=== PATIENT | male | born 1970 | race Caucasian/White ===

== ENCOUNTER 2017-05-07 18:01 | Emergency (ER) | payer OTHER ==
[2017-05-07] MEDS ORDERED: HYDROmorphone 1 MG/ML 1 ML SYRINGE IVP STA ×3 (18:04→22:39)
[2017-05-07] MEDS ORDERED: SODIUM CHLORIDE 0.9% 1,000 ML IV STA (18:04)
[2017-05-07] MEDS ORDERED: RX INFO: IV CONTRAST WAS GIVEN 1 EACH MISC MISCELLANE PRN (18:05)
[2017-05-07 18:18] LABS: Basophils # (A) 0.1 k/uL (0-0.2); Basophils % (A) 1 %; Eosinophils # (A) 0.3 k/uL (0-0.7); Eosinophils % (A) 3 %; HCT 45.2 % (39.0-53.0); HGB 14.9 gm/dL (13.0-17.5); Lymphocytes % (A) 36 %; MCH 29.4 pg (25.0-35.0); Mean Platelet Volume 6.9; Monocytes # (A) 0.4 k/uL (0-1.0); Monocytes % (A) 5 %; Neutrophils # (A) 4.4 k/uL (1.3-7.7); Neutrophils % (A) 53 %; Platelet Count 293 k/uL (150-450); RBC 5.07 m/uL (4.30-5.90); RDW 14.2 % (11.5-15.5); WBC 8.2 k/uL (3.8-10.6)
[2017-05-07 18:27] LABS: ALT 30 U/L (21-72); AST 19 U/L (17-59); Albumin 3.7 g/dL (3.5-5.0); Alcohol <10 mg/dL; Alkaline Phosphatase 68 U/L (38-126); Amylase 105 U/L (30-110); Anion Gap 11 mmol/L; Blood Urea Nitrogen 10 mg/dL (9-20); Calcium 8.4 mg/dL (8.4-10.2); Carbon Dioxide 23 mmol/L (22-30); Chloride 104 mmol/L (98-107); Glucose 180 mg/dL (74-99); Lipase 145 U/L (23-300); Potassium 4.2 mmol/L (3.5-5.1); Sodium 138 mmol/L (137-145); Total Bilirubin 0.4 mg/dL (0.2-1.3); Total Protein 6.4 g/dL (6.3-8.2)
[2017-05-07 18:37] LABS: Creatine Kinase 93 U/L (55-170)
[2017-05-07 18:42] LABS: INR 1.2 (<1.2); Partial Thromboplastin Time 21.6 sec (22.0-30.0); Prothrombin Time 11.1 sec (9.0-12.0)
--- NOTE | 2017-05-07 18:44 | XR ---
EXAMINATION TYPE: XR chest 1V portable DATE OF EXAM: 05/07/2017 COMPARISON: NONE HISTORY: Trauma. Chest pain. TECHNIQUE: Single frontal view of the chest is obtained. FINDINGS: There is no focal air space opacity, pleural effusion, or pneumothorax seen. The cardiac silhouette size is within normal limits. The osseous structures are intact. IMPRESSION: No acute process.
--- NOTE | 2017-05-07 18:48 | XR ---
EXAMINATION TYPE: XR pelvis AP view DATE OF EXAM: 05/07/2017 CLINICAL HISTORY: Trauma with chronic injury to the left knee TECHNIQUE: A single AP view of the pelvis is obtained. COMPARISON: None. FINDINGS: There is no acute fracture/dislocation evident in the pelvis. The hip and sacroiliac join ts appear symmetric and unremarkable. The overlying soft tissue appears unremarkable. IMPRESSION: There is no acute fracture or dislocation in the pelvis.
[2017-05-07 18:50] LABS: Creatine Kinase MB 0.6 ng/mL (0.0-2.4); Troponin I <0.012 ng/mL (0.000-0.034)
--- NOTE | 2017-05-07 18:58 | ED ---
Trauma HPI - General Chief Complaint: Trauma Stated Complaint: Leg crushed-[facility] Time Seen by Provider: 05/07/17 18:04 Source: patient Mode of arrival: EMS Limitations: no limitations - History of Present Illness Initial Comments: This is a 47-year-old male who presents emergency department for left leg pain. The patient was at work when he had his left leg pinned between 2, weight of 2 high low machines. The patient states that this lasted only for a matter of seconds however he had severe pain pain afterwards. The EMS providers were unable to palpate a pulse in route and thus able to trauma was called. The patient denies any other injuries. No head injury. No chest injury. He admits to left knee pain. Denies any numbness, tingling, or weakness in his extremity. No other injuries. - Related Data Home Medications Medication Instructions Recorded Confirmed Acetaminophen Tab [Tylenol Tab] 1,000 mg PO Q6HR PRN 05/07/17 05/07/17 Allergies Allergy/AdvReac Type Severity Reaction Status Date / Time No Known Allergies Allergy Verified 05/07/17 18:57 Review of Systems ROS Statement: Those systems with pertinent positive or pertinent negative responses have been documented in the HPI. ROS Other: All systems not noted in ROS Statement are negative. Past Medical History Past Medical History: No Reported History History of Any Multi-Drug Resistant Organisms: None Reported Additional Past Surgical History / Comment(s): eye surg mir implanted Past Psychological History: No Psychological Hx Reported Smoking Status: Never smoker Past Alcohol Use History: Rare Past Drug Use History: None Reported General Exam - General Exam Comments Initial Comments: Constitutional: Awake alert appears uncomfortable Head: Normocephalic atraumatic Eyes: no conjunctival injection No scleral icterus EOMI, pupils are 4 mm reactive bilaterally Neck: No JVD Supple Heart: Speaking in full sentences Regular rate rhythm normal S1-S2 no murmurs Lungs: Clear to auscultation bilaterally No wheezing No rales Abdomen: Soft nondistended nontender Extremities: Non edematous DP and PT pulses are intact bilaterally to palpation , the patient does have a punctate tape wound to the left posterior knee with controlled bleeding. Sensation intact to light touch in bilateral feet. Neurovascularly intact distal to the injuries Radial pulses intact Neuro: A&Ox3 No focal neurologic deficits Psych: Appropriate mood and affect Limitations: no limitations Course Vital Signs 05/07/17 18:14 Temperature 97.9 F Pulse Rate 88 Respiratory 16 Rate Blood Pressure 142/92 O2 Sat by Pulse 100 Oximetry - Reevaluation(s) Reevaluation #1: 05/07/17 21:06 EKG showing sinus rhythm with a rate of 92. No abnormal ST 7 changes or T-wave inversions. QTC is 422. Other intervals normal. No ectopy. Medical Decision Making - Medical Decision Making This is a 47-year-old male who presents emergency department for a crush injury of the left lower extremity. The patient was evaluated with x-rays and CT angiography of the lower extremities. No evidence of vascular injury however the patient was continuing to have severe amount of pain in his leg. Compartments soft at this time however there is concern for developing compartment syndrome and possibly rhabdomyolysis. Spoke with Dr. Crouch who recommended transfer to a trauma center. The patient was also noted to have subcutaneous air on the computed tomography scan likely from the punctate wound in the popliteal fossa of the left leg. I spoke with Dr. Crouch about this as well and she recommended to leave the wound open at this time. The patient's wound was dressed with gauze and Coban and after extensive irrigation. The patient is up-to-date with his tetanus. Patient will be transferred to [facility] for further management. - Lab Data Result diagrams: 05/07/17 18:08 05/07/17 18:08 Lab Results 05/07/17 05/07/17 05/07/17 Range/Units 18:08 18:08 18:08 WBC 8.2 (3.8-10.6) k/uL RBC 5.07 (4.30-5.90) m/uL Hgb 14.9 (13.0-17.5) gm/dL Hct 45.2 (39.0-53.0) % MCV 89.0 (80.0-100.0) fL MCH 29.4 (25.0-35.0) pg MCHC 33.0 (31.0-37.0) g/dL RDW 14.2 (11.5-15.5) % Plt Count 293 (150-450) k/uL Neutrophils % 53 % Lymphocytes % 36 % Monocytes % 5 % Eosinophils % 3 % Basophils % 1 % Neutrophils # 4.4 (1.3-7.7) k/uL Lymphocytes # 3.0 (1.0-4.8) k/uL Monocytes # 0.4 (0-1.0) k/uL Eosinophils # 0.3 (0-0.7) k/uL Basophils # 0.1 (0-0.2) k/uL PT (9.0-12.0) sec INR (<1.2) APTT (22.0-30.0) sec Sodium 138 (137-145) mmol/L Potassium 4.2 (3.5-5.1) mmol/L Chloride 104 (98-107) mmol/L Carbon Dioxide 23 (22-30) mmol/L Anion Gap 11 mmol/L BUN 10 (9-20) mg/dL Creatinine 1.10 (0.66-1.25) mg/dL Est GFR (MDRD) Af Amer >60 (>60 ml/min/1.73 sqM) Est GFR (MDRD) Non-Af >60 (>60 ml/min/1.73 sqM) Glucose 180 H (74-99) mg/dL Calcium 8.4 (8.4-10.2) mg/dL Total Bilirubin 0.4 (0.2-1.3) mg/dL AST 19 (17-59) U/L ALT 30 (21-72) U/L Alkaline Phosphatase 68 (38-126) U/L Total Creatine Kinase (55-170) U/L CK-MB (CK-2) (0.0-2.4) ng/mL CK-MB (CK-2) Rel Index Troponin I (0.000-0.034) ng/mL Total Protein 6.4 (6.3-8.2) g/dL Albumin 3.7 (3.5-5.0) g/dL Amylase 105 (30-110) U/L Lipase 145 (23-300) U/L Urine Color Urine Appearance (Clear) Urine pH (5.0-8.0) Ur Specific [place] (1.001-1.035) Urine Protein (Negative) Urine Glucose (UA) (Negative) Urine Ketones (Negative) Urine Blood (Negative) Urine Nitrite (Negative) Urine Bilirubin (Negative) Urine Urobilinogen (<2.0) mg/dL Ur Leukocyte Esterase (Negative) Urine Opiates Screen (NotDetected) Ur Oxycodone Screen (NotDetected) Urine Methadone Screen (NotDetected) Ur Propoxyphene Screen (NotDetected) Ur Barbiturates Screen (NotDetected) U Tricyclic Antidepress (NotDetected) Ur Phencyclidine Scrn (NotDetected) Ur Amphetamines Screen (NotDetected) U Methamphetamines Scrn (NotDetected) U Benzodiazepines Scrn (NotDetected) Urine Cocaine Screen (NotDetected) U Marijuana (THC) Screen (NotDetected) Serum Alcohol <10 mg/dL Blood Type A Positive Blood Type Confirm Blood Type Recheck CABO Indicated Antibody Screen NEGATIVE Spec Expiration Date 05/10/2017 - 230705/07/17 05/07/17 05/07/17 Range/Units 18:08 18:08 18:53 WBC (3.8-10.6) k/uL RBC (4.30-5.90) m/uL Hgb (13.0-17.5) gm/dL Hct (39.0-53.0) % MCV (80.0-100.0) fL MCH (25.0-35.0) pg MCHC (31.0-37.0) g/dL RDW (11.5-15.5) % Plt Count (150-450) k/uL Neutrophils % % Lymphocytes % % Monocytes % % Eosinophils % % Basophils % % Neutrophils # (1.3-7.7) k/uL Lymphocytes # (1.0-4.8) k/uL Monocytes # (0-1.0) k/uL Eosinophils # (0-0.7) k/uL Basophils # (0-0.2) k/uL PT 11.1 (9.0-12.0) sec INR 1.2 H (<1.2) APTT 21.6 L (22.0-30.0) sec Sodium (137-145) mmol/L Potassium (3.5-5.1) mmol/L Chloride (98-107) mmol/L Carbon Dioxide (22-30) mmol/L Anion Gap mmol/L BUN (9-20) mg/dL Creatinine (0.66-1.25) mg/dL Est GFR (MDRD) Af Amer (>60 ml/min/1.73 sqM) Est GFR (MDRD) Non-Af (>60 ml/min/1.73 sqM) Glucose (74-99) mg/dL Calcium (8.4-10.2) mg/dL Total Bilirubin (0.2-1.3) mg/dL AST (17-59) U/L ALT (21-72) U/L Alkaline Phosphatase (38-126) U/L Total Creatine Kinase 93 (55-170) U/L CK-MB (CK-2) 0.6 (0.0-2.4) ng/mL CK-MB (CK-2) Rel Index 0.6 Troponin I <0.012 (0.000-0.034) ng/mL Total Protein (6.3-8.2) g/dL Albumin (3.5-5.0) g/dL Amylase (30-110) U/L Lipase (23-300) U/L Urine Color Urine Appearance (Clear) Urine pH (5.0-8.0) Ur Specific [place] (1.001-1.035) Urine Protein (Negative) Urine Glucose (UA) (Negative) Urine Ketones (Negative) Urine Blood (Negative) Urine Nitrite (Negative) Urine Bilirubin (Negative) Urine Urobilinogen (<2.0) mg/dL Ur Leukocyte Esterase (Negative) Urine Opiates Screen (NotDetected) Ur Oxycodone Screen (NotDetected) Urine Methadone Screen (NotDetected) Ur Propoxyphene Screen (NotDetected) Ur Barbiturates Screen (NotDetected) U Tricyclic Antidepress (NotDetected) Ur Phencyclidine Scrn (NotDetected) Ur Amphetamines Screen (NotDetected) U Methamphetamines Scrn (NotDetected) U Benzodiazepines Scrn (NotDetected) Urine Cocaine Screen (NotDetected) U Marijuana (THC) Screen (NotDetected) Serum Alcohol mg/dL Blood Type Blood Type Confirm A Positive Blood Type Recheck Antibody Screen Spec Expiration Date 05/07/17 Range/Units 20:00 WBC (3.8-10.6) k/uL RBC (4.30-5.90) m/uL Hgb (13.0-17.5) gm/dL Hct (39.0-53.0) % MCV (80.0-100.0) fL MCH (25.0-35.0) pg MCHC (31.0-37.0) g/dL RDW (11.5-15.5) % Plt Count (150-450) k/uL Neutrophils % % Lymphocytes % % Monocytes % % Eosinophils % % Basophils % % Neutrophils # (1.3-7.7) k/uL Lymphocytes # (1.0-4.8) k/uL Monocytes # (0-1.0) k/uL Eosinophils # (0-0.7) k/uL Basophils # (0-0.2) k/uL PT (9.0-12.0) sec INR (<1.2) APTT (22.0-30.0) sec Sodium (137-145) mmol/L Potassium (3.5-5.1) mmol/L Chloride (98-107) mmol/L Carbon Dioxide (22-30) mmol/L Anion Gap mmol/L BUN (9-20) mg/dL Creatinine (0.66-1.25) mg/dL Est GFR (MDRD) Af Amer (>60 ml/min/1.73 sqM) Est GFR (MDRD) Non-Af (>60 ml/min/1.73 sqM) Glucose (74-99) mg/dL Calcium (8.4-10.2) mg/dL Total Bilirubin (0.2-1.3) mg/dL AST (17-59) U/L ALT (21-72) U/L Alkaline Phosphatase (38-126) U/L Total Creatine Kinase (55-170) U/L CK-MB (CK-2) (0.0-2.4) ng/mL CK-MB (CK-2) Rel Index Troponin I (0.000-0.034) ng/mL Total Protein (6.3-8.2) g/dL Albumin (3.5-5.0) g/dL Amylase (30-110) U/L Lipase (23-300) U/L Urine Color Light Yellow Urine Appearance Clear (Clear) Urine pH 7.0 (5.0-8.0) Ur Specific [place] 1.039 H (1.001-1.035) Urine Protein Negative (Negative) Urine Glucose (UA) Negative (Negative) Urine Ketones Negative (Negative) Urine Blood Negative (Negative) Urine Nitrite Negative (Negative) Urine Bilirubin Negative (Negative) Urine Urobilinogen <2.0 (<2.0) mg/dL Ur Leukocyte Esterase Negative (Negative) Urine Opiates Screen Not Detected (NotDetected) Ur Oxycodone Screen Not Detected (NotDetected) Urine Methadone Screen Not Detected (NotDetected) Ur Propoxyphene Screen Not Detected (NotDetected) Ur Barbiturates Screen Not Detected (NotDetected) U Tricyclic Antidepress Not Detected (NotDetected) Ur Phencyclidine Scrn Not Detected (NotDetected) Ur Amphetamines Screen Detected H (NotDetected) U Methamphetamines Scrn Detected H (NotDetected) U Benzodiazepines Scrn Not Detected (NotDetected) Urine Cocaine Screen Not Detected (NotDetected) U Marijuana (THC) Screen Not Detected (NotDetected) Serum Alcohol mg/dL Blood Type Blood Type Confirm Blood Type Recheck Antibody Screen Spec Expiration Date Disposition Clinical Impression: Crush injury, Laceration Disposition: OTHER INSTITUTION NOT DEFINED Condition: Stable - Out of Hospital Transfer - Req. Specs Out of Hospital Transfer - Requested Specifics: Other Emergency Center ([facility])
--- NOTE | 2017-05-07 19:16 | CT ---
EXAMINATION TYPE: CT angio lower extremity BILAT DATE OF EXAM: 05/07/2017 6:57 PM COMPARISON: NONE HISTORY: Laceration to posterior left knee after crushing injury. CT DLP: 602.9 mGycm Automated exposure control for dose reduction was used. TECHNIQUE: Performed with IV Contrast, patient injected with 125 mL of Omnipaque 350. 3-D images of the vasculature of the lower extremities were obtained.. FINDINGS: The abdominal aorta is of normal course and caliber. No significant atherosclerosis, aneurysm or sten osis. The external iliac arteries, superficial femoral arteries, and deep femoral arteries, and popli teal arteries are patent. Of note the left popliteal artery is unaffected as there is no evidence of extravasation. The posterior tibial and anterior tibial as well as the fibular arteries of the bilate ral lower extremities are unremarkable and patent. Laceration of the left posterior lower extremity is seen at the level of the distal femur with subcut aneous soft tissue swelling and innumerable punctate foci of subcutaneous emphysema extending through out the fascial planes of the left lower extremity into the anterior compartment and suprapatellar sp ping. Moderate femoral acetabular arthropathy seen bilaterally as there are subchondral cysts of the right femoral head and left acetabulum. There is no evidence of fracture within the visualized extremities. A small suprapatellar left joint effusion is seen. No hemarthrosis. Subcutaneous hematoma is seen ad jacent to the popliteal vein and anterior to the extensor musculature of the thigh. No evidence of dilated bowel within the abdomen. Urinary bladder is unremarkable. No gross evidence o f adenopathy. Visualized kidneys, inferior margin of the spleen, and liver are unremarkable. Osseous pelvic structures are intact. IMPRESSION: 1. SUBCUTANEOUS EMPHYSEMA EXTENDING INTO ALL COMPARTMENTS OF THE LEFT LOWER EXTREMITY FOCUS AT THE PO PLITEAL REGION FROM A KNOWN LACERATION WITHOUT POPLITEAL ARTERY INJURY OR EXTRAVASATION. 2. NO GROSS EVIDENCE OF FRACTURE ON THE AXIAL IMAGES. 3. SMALL SUPRAPATELLAR JOINT EFFUSION ON THE LEFT. NO LIPOHEMARTHROSIS. 4. EXTENSIVE SOFT TISSUE SWELLING AND FOCAL HEMATOMA ADJACENT TO THE LEFT POPLITEAL VEIN AND ANTERIOR TO THE EXTENSOR MUSCULATURE OF THE THIGH.
--- NOTE | 2017-05-07 19:27 | XR ---
EXAMINATION TYPE: XR ankle complete LT DATE OF EXAM: 05/07/2017 CLINICAL HISTORY: Left knee pain after crush injury. TECHNIQUE: Frontal, lateral and oblique images of the left ankle are obtained. COMPARISON: None. FINDINGS: Irregularity along the lateral surface of the distal tibial metaphysis and epiphysis as we ll as irregularity of the anterior distal tibial epiphysis appear well corticated and are likely sequ joyce of prior chronic injury. Ankle joint and mortise appear intact. No tibiotalar joint effusion. The re is no acute fracture/dislocation evident in the left ankle. The overlying soft tissue appears unr emarkable. IMPRESSION: Cortical irregularity of the distal left tibia appear well-corticated and likely relate to sequela of remote injury. No evidence of acute fracture or dislocation in the left ankle.
--- NOTE | 2017-05-07 19:28 | XR ---
EXAMINATION TYPE: XR tibia fibula LT DATE OF EXAM: 05/07/2017 CLINICAL HISTORY: Left knee pain after crush injury TECHNIQUE: Two views of the left leg are obtained. COMPARISON: None. FINDINGS: There is no acute fracture or dislocation seen in the left tibia or fibula. The left knee and ankle joints appear within normal limits. The overlying soft tissue appears unremarkable. Left knee subcutaneous emphysema from the known laceration is present. IMPRESSION: There is no acute fracture or dislocation seen in the left tibia or fibula. Subcutaneous emphysema is noted from the known laceration around the knee joint most prominent posteriorly.
--- NOTE | 2017-05-07 19:46 | XR ---
EXAMINATION TYPE: XR knee limited LT DATE OF EXAM: 05/07/2017 CLINICAL HISTORY: Trauma with crush injury to the left knee. Left knee pain. TECHNIQUE: 2 views of the left knee are obtained. COMPARISON: CT lower extremity the same day. FINDINGS: There is no acute fracture/dislocation evident in left knee. Moderate degree left subcutan eous emphysema is seen around the knee extending into the suprapatellar joint space. Posterior left k nee soft tissue swelling is also noted. The tri-compartment joint spaces appear within normal limits. The overlying soft tissue appears unremarkable. IMPRESSION: There is no acute fracture or dislocation in the left knee. Redemonstration of subcutane ous emphysema and soft tissue swelling is seen on the recent CT relating to the known posterior soft tissue laceration.
[2017-05-07 20:08] LABS: Appearance,Urine Clear (Clear); Bilirubin,Urine Negative (Negative); Blood,Urine Negative (Negative); Color,Urine Light Yellow; Glucose,Urine (UA) Negative (Negative); Ketones,Urine Negative (Negative); Leukocyte Esterase,Urine Negative (Negative); Nitrite,Urine Negative (Negative); Protein,Urine Negative (Negative); Specific Gravity,Urine 1.039 (1.001-1.035); Urobilinogen,Urine <2.0 mg/dL (<2.0)
[2017-05-07 20:19] LABS: Amphetamine Screen,Urine Detected (NotDetected); Barbiturate Screen,Urine Not Detected (NotDetected); Benzodiazepines Screen,Urine Not Detected (NotDetected); Cocaine Screen,Urine Not Detected (NotDetected); Methadone Screen, Urine Not Detected (NotDetected); Opiate Screen,Urine Not Detected (NotDetected); Oxycodone Screen, Urine Not Detected (NotDetected); Phencyclidine Screen,Urine Not Detected (NotDetected); Tricyclic Antidepressant,Urine Not Detected (NotDetected); Urn Cannabinoid Scrn Not Detected (NotDetected)
[2017-05-07 23:17] VITALS: BP 115/70; PULSE 79; RESP 18; TEMP 97.8
== END 2017-05-07 23:25 | disposition short-term general hospital (02) ==
LOC: EC 18:01
DX: S87.02XA Crushing injury of left knee, initial encounter (principal); W23.0XXA Caught, crushed, jammed, or pinched between moving objects, initial encounter; Y99.0 Civilian activity done for income or pay; Y93.89 Activity, other specified; Y92.69 Other specified industrial and construction area as the place of occurrence of the external cause
CPT/HCPCS: 99285; 96374; 96376 ×2; 96361; 36415; 93005; 86900; 86901; 80053; 82150; 82550; 82553; 83690; 84484; 85025; 85610; 85730; 86850; 81003; 80306; 80320; 71010; 72170; 73590; 73560; 73610; 73706; Q9967; J1170; 82075

== ENCOUNTER → 2017-08-10 | Outpatient (CLI) | payer OTHER ==
--- NOTE | 2017-08-10 15:05 | MR ---
EXAMINATION TYPE: MR knee LT wo con DATE OF EXAM: 08/10/2017 COMPARISON: CT angiography dated 05/07/2017 HISTORY: Crushed injury to left leg TECHNIQUE: Multiplanar, multisequence imaging of the left knee is performed without IV contrast. FINDINGS: MEDIAL MENISCUS: Anterior and posterior horns are intact without tear. LATERAL MENISCUS: Anterior and posterior horns are intact without tear. 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 CRUCIATE LIGAMENTS: The anterior and posterior cruciate ligaments are intact with increased signal of the posterior insertional fibers of the anterior cruciate ligament and thickening of the superior fi bers compatible low-grade sprain. COLLATERAL LIGAMENTS: The medial collateral ligament and lateral collateral ligament complex are inta ct and unremarkable. Minimal high signal seen superficial to the medial collateral ligament indicatin g MCL bursitis. EXTENSOR MECHANISM: Visualized quadriceps and patellar tendons are intact. EFFUSION: Scant suprapatellar joint fluid without tyler effusion. POPLITEAL CYST: Very small popliteal cyst is seen between the medial head of the gastrocnemius and s emimembranosus. TRICOMPARTMENT SPACES: Maintained alignment. CARTILAGE: Partial-thickness chondral defect is seen of the anterior weightbearing surface of the lat eral femoral condyle measuring 1.1 x 1.2 cm. Central defect is seen of the medial compartment althoug h there is mild signal heterogeneity with increased signal of the medial weightbearing surface of the medial femoral condyle. Patellar and trochlear cartilage are unremarkable. BONE MARROW SIGNAL: Minimal bone marrow edema is seen of the inferior patellar pole. No other focal a bnormal marrow signal is appreciated. IMPRESSION: 1. Low-grade ACL sprain without tear. 2. Minimal bone marrow edema within the inferior patellar pole and degenerative of mild or resolving osseous contusion. 3. Bicompartmental chondrosis with partial-thickness defects of the weightbearing surface of the late ral femoral condyle measuring 1.1 x 1.2 cm and signal heterogeneity in the medial weightbearing surfa ce of the medial femoral condyle. 4. Findings compatible with mild MCL bursitis.
== END | disposition home or self-care (01) ==
LOC: RADMRIMAIN 12:04
PROVIDERS: ATTEND Orthopaedic Surgery
DX: S83.512A Sprain of anterior cruciate ligament of left knee, initial encounter (principal); R60.0 Localized edema; M25.862 Other specified joint disorders, left knee

== ENCOUNTER 2019-09-25 20:32 | Emergency (ER) | payer OTHER ==
[2019-09-25] MEDS ORDERED: LORazepam 2 MG/ML INJ IV STA (20:41)
[2019-09-25 21:36] LABS: Basophils # (A) 0.1 k/uL (0-0.2); Basophils % (A) 1 %; Eosinophils # (A) 0.3 k/uL (0-0.7); Eosinophils % (A) 4 %; HCT 45.4 % (39.0-53.0); HGB 14.8 gm/dL (13.0-17.5); Lymphocytes # (A) 3.8 k/uL (1.0-4.8); Lymphocytes % (A) 49 %; MCHC 32.7 g/dL (31.0-37.0); MCV 91.9 fL (80.0-100.0); Mean Platelet Volume 6.7; Monocytes # (A) 0.4 k/uL (0-1.0); Monocytes % (A) 5 %; Neutrophils % (A) 38 %; Platelet Count 323 k/uL (150-450); RBC 4.94 m/uL (4.30-5.90); RDW 12.8 % (11.5-15.5); WBC 7.9 k/uL (3.8-10.6)
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
[2019-09-25 21:49] LABS: ALT 19 U/L (4-49); AST 22 U/L (17-59); African American GFR (CKD) >90 (>60 ml/min/1.73 sqM); Albumin 4.8 g/dL (3.5-5.0); Alkaline Phosphatase 79 U/L (38-126); Anion Gap 14 mmol/L; Blood Urea Nitrogen 17 mg/dL (9-20); Calcium 9.5 mg/dL (8.4-10.2); Carbon Dioxide 22 mmol/L (22-30); Chloride 102 mmol/L (98-107); Glucose 148 mg/dL (74-99); Non-African American GFR(CKD) >90 (>60 ml/min/1.73 sqM); Potassium 3.8 mmol/L (3.5-5.1); Sodium 138 mmol/L (137-145); Total Bilirubin 0.2 mg/dL (0.2-1.3); Total Protein 8.1 g/dL (6.3-8.2)
--- NOTE | 2019-09-25 22:09 | XR ---
EXAMINATION TYPE: XR chest 2V DATE OF EXAM: 09/25/2019 COMPARISON: 05/07/2017 INDICATION: Heart palpitations TECHNIQUE: Frontal and lateral views of the chest are obtained. FINDINGS: The heart size is normal. The pulmonary vasculature is normal. There is some mild increase infiltrate to the right upper lung field. Some mild infiltrate is at the right base. Correlate for atelectasis and atypical pneumonia. IMPRESSION: 1. Mild right upper and right lower lobe infiltrates. Correlate for atypical pneumonia and atelectasi s.
[2019-09-25] MEDS ORDERED: SODIUM CHLORIDE 0.9% 1,000 ML IV ONE (22:26)
[2019-09-25] MEDS ORDERED: cefTRIAXone IN SWFI 1,000 MG/10 ML SYRINGE IVP STA (22:26)
[2019-09-25 22:34] LABS: Amphetamine Screen,Urine Detected (NotDetected); Barbiturate Screen,Urine Not Detected (NotDetected); Benzodiazepines Screen,Urine Not Detected (NotDetected); Cocaine Screen,Urine Not Detected (NotDetected); Methadone Screen, Urine Not Detected (NotDetected); Opiate Screen,Urine Detected (NotDetected); Oxycodone Screen, Urine Not Detected (NotDetected); Phencyclidine Screen,Urine Not Detected (NotDetected); Tricyclic Antidepressant,Urine Not Detected (NotDetected); Urn Cannabinoid Scrn Detected (NotDetected)
--- NOTE | 2019-09-26 00:26 | CT ---
EXAMINATION TYPE: CT chest angio for PE DATE OF EXAM: 09/26/2019 COMPARISON: None HISTORY: R/O PE, Rapid Heart Rate CT DLP: 444.1 mGycm Automated exposure control for dose reduction was used. CONTRAST: Performed with IV Contrast, patient injected with 70 mL of Isovue 370. Multiple axial sections were obtained from the thoracic inlet to the diaphragm with intravenous contr ast and 3-D post processed images. Mediastinum appears normal. Thoracic aorta is intact. There is no aneurysm or dissection. There are n o hilar masses. There is no pleural effusion or pneumothorax. There is mild subsegmental atelectasis at the lung bases. There is no evidence of a pulmonary mass. There is no pericardial effusion. There is normal contrast opacification of the pulmonary arteries. There no filling defects. There is minor spurring in the thoracic spine. Upper abdominal soft tissues are unremarkable. There is cholecystectomy noted. IMPRESSION: No evidence of pulmonary embolism. Minimal subsegmental atelectasis at the lung bases.
[2019-09-26 01:25] VITALS: BP 116/76; PULSE 99; RESP 18; TEMP 99
== END 2019-09-26 01:23 | disposition home or self-care (01) ==
LOC: EC 20:32
DX: J18.9 Pneumonia, unspecified organism (principal); R00.2 Palpitations; R00.0 Tachycardia, unspecified
CPT/HCPCS: 99285; 96374; 96375; 96361; 36415; 93005 ×2; 85379; 80053; 84484; 85025; 80306; 87635; 71046; 71275; J2060; J0696; Q9967

== ENCOUNTER 2020-10-23 11:38 | Emergency (ER) | payer OTHER ==
[2020-10-23 11:45] VITALS: BP 152/93; PULSE 100; RESP 20; TEMP 98
[2020-10-23] MEDS ORDERED: DIPH,PERTUS(ACELL)TETVAC-LF 0.5 ML VIAL IM ONE (12:14)
[2020-10-23] MEDS ORDERED: LIDOCAINE 1% INJ 10MG/ML (20 ML MDV) SQ ONE (12:14)
--- NOTE | 2020-10-23 12:46 | XR ---
EXAMINATION TYPE: XR finger LT DATE OF EXAM: 10/23/2020 COMPARISON: NONE HISTORY: Crushing injury with pain. TECHNIQUE: 3 views left thumb. FINDINGS: There is acute comminuted slightly displaced fracture through the central 60% of the first distal phalanx. There is a small 7 x 2 mm ossific fracture fragment along the palmar slight ulnar as pect. Mild/moderate associated soft tissue swelling. Joint space is maintained. Incidental partial visualization of acute oblique minimally 2 mm distracted fracture through the mids haft of the second metacarpal. IMPRESSION: As above.
[2020-10-23] MEDS ORDERED: ceFAZolin 1,000 MG VIAL (IM USE) IM STA (13:13)
[2020-10-23] MEDS ORDERED: HYDROcodone/APAP 7.5-325MG 1 EACH TAB PO ONE (13:14)
--- NOTE | 2020-10-23 13:30 | XR ---
EXAMINATION TYPE: XR hand complete LT DATE OF EXAM: 10/23/2020 CLINICAL HISTORY: Pain from crushing injury. TECHNIQUE: Frontal, lateral and oblique images of the left hand are obtained. COMPARISON: Left thumb x-ray earlier today. FINDINGS: There is confirmation of a acute oblique minimally distracted fracture midshaft second met acarpal. There is redemonstration of comminuted displaced fracture through the first distal phalanx. No additional fractures are identified. Joint spaces are maintained. IMPRESSION: As above.
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
== END 2020-10-23 14:11 | disposition home or self-care (01) ==
LOC: EC 11:38
DX: S62.525B Nondisplaced fracture of distal phalanx of left thumb, initial encounter for open fracture (principal); S62.321A Displaced fracture of shaft of second metacarpal bone, left hand, initial encounter for closed fracture; I10 Essential (primary) hypertension; F12.90 Cannabis use, unspecified, uncomplicated; Z23 Encounter for immunization; W23.0XXA Caught, crushed, jammed, or pinched between moving objects, initial encounter; Y92.89 Other specified places as the place of occurrence of the external cause; Y99.0 Civilian activity done for income or pay
CPT/HCPCS: 99283 ×2; 96372 ×2; 29125 ×2; 90471 ×2; 73130; 73140; 90715; J0690; J2001

== ENCOUNTER 2021-01-30 08:13 | Day surgery (SDC) | payer OTHER ==
[2021-01-28 15:49] VITALS: BMI 27.3
[~2021-01-30 08:13] MED LIST: LACTATED RINGERS 1,000 ML IV SCH
[2021-01-30] MEDS ORDERED: LIDOCAINE 1% (10MG/ML) FOR IV START INTRADERMA ONE (08:58)
[2021-01-30 09:01] VITALS: TEMP 97.9
[2021-01-30] MEDS ORDERED: LIDOCAINE 1% INJ 10MG/ML (20 ML MDV) ONE (09:47)
[2021-01-30] MEDS ORDERED: PROPOFOL 10 MG/ML 20 ML VIAL IV ONE (09:47)
--- NOTE | 2021-01-30 09:52 | P.GSHP ---
History of Present Illness H&P Date: 01/30/21 Chief Complaint: Screening colonoscopy This is a 50-year-old male presents today for screening colonoscopy. Patient denies any significant GI complaints. Past Medical History Past Medical History: GERD/Reflux, Hyperlipidemia, Hypertension Additional Past Medical History / Comment(s): Hx crush injury to knee. History of Any Multi-Drug Resistant Organisms: None Reported Past Surgical History: No Surgical Hx Reported, Cholecystectomy Additional Past Surgical History / Comment(s): Right eye surgery, lens implanted. Past Anesthesia/Blood Transfusion Reactions: No Reported Reaction Past Psychological History: ADD/ADHD, Anxiety Smoking Status: Never smoker Past Alcohol Use History: Rare Past Drug Use History: Marijuana Additional Drug Use History / Comment(s): "No Marijuana in a long time." - Past Family History Mother Family Medical History: Cancer Medications and Allergies Home Medications Medication Instructions Recorded Confirmed Type Ibuprofen [Motrin] 800 mg PO TID PRN 07/06/17 01/30/21 History ALPRAZolam [Xanax] 0.5 mg PO BID PRN 01/28/21 01/30/21 History Dextroamphetamine/Amphetamine 50 mg PO QAM 01/28/21 01/30/21 History [Adderall Xr] Omeprazole 40 mg PO QAM 01/28/21 01/30/21 History amLODIPine [Norvasc] 10 mg PO QAM 01/28/21 01/30/21 History Allergies Allergy/AdvReac Type Severity Reaction Status Date / Time No Known Allergies Allergy Verified 01/30/21 08:49 Surgical - Exam Vital Signs Temp Pulse Resp BP Pulse Ox 97.9 F 88 16 149/89 99 01/30/21 08:58 01/30/21 08:58 01/30/21 08:58 01/30/21 08:58 01/30/21 08:58 - General well developed, well nourished, no distress - Eyes PERRL - ENT normal pinna - Neck no masses - Respiratory normal expansion - Cardiovascular Rhythm: regular - Abdomen Abdomen: soft, non tender Assessment and Plan Assessment: We'll perform screening colonoscopy
[2021-01-30] MEDS ORDERED: LACTATED RINGERS 1,000 ML IV ONE (10:02)
--- NOTE | 2021-01-30 10:06 | P.OP ---
Date of Procedure: 01/30/21 Preoperative Diagnosis: Screening colonoscopy Postoperative Diagnosis: Right colon polyp Procedure(s) Performed: Colonoscopy Anesthesia: MAC Surgeon: Jl Quesada Pathology: other (Right colon polyp) Condition: stable Disposition: PACU Description of Procedure: The patient's placed on the endoscopy table lateral position. He received IV suture. Digital rectal exam was performed which revealed a few external hemorrhoids. Possible colonoscope was then placed patient anus and passed throughout the entire colon. The ileocecal valve was visualized. In the ascending colon there was a polyp seen this removed with snare. The remainder of the ascending colon appeared normal. . The transverse colon, descending colon appeared normal. The sigmoid colon was normal. Scope was brought back the rectum and this appeared normal. Scope was withdrawn from the patient.
[2021-01-30 10:29] VITALS: BP 119/75; PULSE 77; RESP 20
== END 2021-01-30 10:49 | disposition home or self-care (01) ==
LOC: ORWHC2ENDO 08:13
PROVIDERS: ATTEND Surgery
DX: Z12.11 Encounter for screening for malignant neoplasm of colon (principal); K63.5 Polyp of colon; K21.9 Gastro-esophageal reflux disease without esophagitis; E78.5 Hyperlipidemia, unspecified; I10 Essential (primary) hypertension; Z90.49 Acquired absence of other specified parts of digestive tract; Z98.890 Other specified postprocedural states; F90.9 Attention-deficit hyperactivity disorder, unspecified type; F41.9 Anxiety disorder, unspecified; Z96.1 Presence of intraocular lens; Z80.9 Family history of malignant neoplasm, unspecified; Z79.899 Other long term (current) drug therapy
CPT/HCPCS: 45385; J2001; J2704

== ENCOUNTER 2021-03-20 01:36 | Emergency (ER) | payer OTHER ==
[2021-03-20 01:41] VITALS: RESP 20; TEMP 98.6
[2021-03-20] MEDS ORDERED: SODIUM CHLORIDE 0.9% 1,000 ML IV STA (01:52)
--- NOTE | 2021-03-20 01:52 | ED ---
Chest Pain HPI - General Chief Complaint: Chest Pain Stated Complaint: Chest Pain Time Seen by Provider: 03/20/21 01:43 Source: patient, RN notes reviewed, old records reviewed Mode of arrival: ambulatory Limitations: no limitations - History of Present Illness Initial Comments: This is a 51-year-old male to the emergency department today. Patient states he woke up from sleep with severe chest pain to his back and lower back patient has no recent other complaints of travel history sick contacts no fevers been feeling well lately with no shortness of breath. No nausea vomiting or diarrhea. No chest pain no history of coronavirus. Patient has no prior history of heart disease. No fever cough or congestion MD Complaint: chest pain -: hour(s) Onset: awoke with symptoms Pain Location: substernal, left chest Pain Radiation: back Severity: moderate Severity scale (1-10): 6 Quality: tightness, sharp Consistency: constant Improves With: nothing Worsens With: nothing Context: other (none) Anginal Symptoms: sense of impending doom Other Symptoms: palpitations Treatments Prior to Arrival: none - Related Data Home Medications Medication Instructions Recorded Confirmed Ibuprofen [Motrin] 800 mg PO TID PRN 07/06/17 03/21/21 ALPRAZolam [Xanax] 0.5 mg PO BID PRN 01/28/21 03/21/21 Dextroamphetamine/Amphetamine 50 mg PO DAILY 01/28/21 03/21/21 [Adderall Xr] Omeprazole 40 mg PO DAILY 01/28/21 03/21/21 amLODIPine [Norvasc] 10 mg PO DAILY 01/28/21 03/21/21 Previous Rx's Medication Instructions Recorded Cephalexin [Keflex] 500 mg PO Q6HR #20 cap 03/21/21 Allergies Allergy/AdvReac Type Severity Reaction Status Date / Time No Known Allergies Allergy Verified 03/21/21 13:53 Review of Systems ROS Statement: Those systems with pertinent positive or pertinent negative responses have been documented in the HPI. ROS Other: All systems not noted in ROS Statement are negative. EKG Findings - EKG Comments: EKG Findings:: EKG shows NSR rate of 90 CA 148 QRS 90 QTc 467 Past Medical History Past Medical History: GERD/Reflux, Hyperlipidemia, Hypertension Additional Past Medical History / Comment(s): Hx crush injury to knee. History of Any Multi-Drug Resistant Organisms: None Reported Past Surgical History: Cholecystectomy Additional Past Surgical History / Comment(s): Right eye surgery, lens implanted. Past Anesthesia/Blood Transfusion Reactions: No Reported Reaction Past Psychological History: ADD/ADHD, Anxiety Smoking Status: Never smoker Past Alcohol Use History: Rare Past Drug Use History: Marijuana - Past Family History Mother Family Medical History: Cancer General Exam Limitations: no limitations General appearance: anxious Head exam: Present: atraumatic, normocephalic, normal inspection Eye exam: Present: normal appearance, PERRL, EOMI. Absent: scleral icterus, conjunctival injection, periorbital swelling ENT exam: Present: normal exam, mucous membranes moist Neck exam: Present: normal inspection. Absent: tenderness, meningismus, lymphadenopathy Respiratory exam: Present: normal lung sounds bilaterally. Absent: respiratory distress, wheezes, rales, rhonchi, stridor Cardiovascular Exam: Present: regular rate, normal rhythm, normal heart sounds. Absent: systolic murmur, diastolic murmur, rubs, gallop, clicks GI/Abdominal exam: Present: soft, normal bowel sounds. Absent: distended, tenderness, guarding, rebound, rigid Extremities exam: Present: normal inspection, full ROM, normal capillary refill. Absent: tenderness, pedal edema, joint swelling, calf tenderness Back exam: Present: normal inspection Neurological exam: Present: alert, oriented X3, CN II-XII intact Psychiatric exam: Present: normal affect, normal mood Skin exam: Present: warm, dry, intact, normal color. Absent: rash Course Vital Signs 03/20/21 03/20/21 01:37 03:39 Temperature 98.6 F Pulse Rate 92 81 Respiratory 20 20 Rate Blood Pressure 137/95 142/85 O2 Sat by Pulse 99 96 Oximetry - Reevaluation(s) Reevaluation #1: Medical record is reviewed Patient symptoms are improved here in the emergency department Patient is informed of results and questions are answered Reevaluation #2: Studies Chest x-rays negative for acute disease Chest Pain MDM - MDM 51 male to the emergency department for evaluation of sudden onset of severe [address] pain to back. Patient has sharp chest pain that awoke him from sleep. Positive nausea no shortness of breath no other complaints Disposition Clinical Impression: Chest pain Disposition: HOME SELF-CARE Condition: Good Instructions (If sedation given, give patient instructions): Chest Pain (ED) Is patient prescribed a controlled substance at d/c from ED?: No Referrals: Edmond Grove MD [Primary Care Provider] - 1-2 days
[2021-03-20 02:09] LABS: Basophils # (A) 0.1 k/uL (0-0.2); Basophils % (A) 1 %; Eosinophils # (A) 0.2 k/uL (0-0.7); Eosinophils % (A) 3 %; HCT 44.5 % (39.0-53.0); HGB 14.9 gm/dL (13.0-17.5); Lymphocytes # (A) 3.2 k/uL (1.0-4.8); Lymphocytes % (A) 42 %; MCH 30.4 pg (25.0-35.0); MCHC 33.4 g/dL (31.0-37.0); MCV 90.9 fL (80.0-100.0); Mean Platelet Volume 6.5; Monocytes # (A) 0.4 k/uL (0-1.0); Monocytes % (A) 5 %; Neutrophils # (A) 3.6 k/uL (1.3-7.7); Neutrophils % (A) 47 %; Platelet Count 302 k/uL (150-450); RDW 12.4 % (11.5-15.5); WBC 7.6 k/uL (3.8-10.6)
[2021-03-20 02:24] LABS: Partial Thromboplastin Time 24.6 sec (22.0-30.0); Prothrombin Time 10.4 sec (9.0-12.0)
[2021-03-20 02:38] LABS: ALT 16 U/L (4-49); AST 24 U/L (17-59); African American GFR (CKD) >90 (>60 ml/min/1.73 sqM); Albumin 4.3 g/dL (3.5-5.0); Alkaline Phosphatase 90 U/L (38-126); Anion Gap 10 mmol/L; Blood Urea Nitrogen 14 mg/dL (9-20); Calcium 8.9 mg/dL (8.4-10.2); Carbon Dioxide 27 mmol/L (22-30); Chloride 101 mmol/L (98-107); Glucose 119 mg/dL (74-99); Lipase 111 U/L (23-300); Magnesium 2.1 mg/dL (1.6-2.3); Non-African American GFR(CKD) >90 (>60 ml/min/1.73 sqM); Potassium 3.5 mmol/L (3.5-5.1); Sodium 138 mmol/L (137-145); Total Bilirubin 0.3 mg/dL (0.2-1.3); Total Protein 7.5 g/dL (6.3-8.2)
--- NOTE | 2021-03-20 02:40 | CT ---
EXAMINATION TYPE: CT angio chest DATE OF EXAM: 03/20/2021 COMPARISON: 09/26/2019 HISTORY: R/O PE, Chest Pain CT DLP: 399.60 mGycm Automated exposure control for dose reduction was used. CONTRAST: Performed with IV Contrast, patient injected with 70 mL of Isovue 370. There are 3-D post processed images. There is some mild interstitial density in the lungs. This is in the subpleural posterior lung mauro . There is no pulmonary consolidation. There is no pleural effusion. There is no pericardial effusion . There is normal contrast opacification of the pulmonary arteries. There are no filling defects. There is no mediastinal adenopathy. There are no hilar masses. Thoracic aorta is intact. There is no aneur ysm or dissection. The thoracic spine is intact. There is no compression fracture. Sternum is intact. IMPRESSION: No evidence of pulmonary embolism. Minimal pulmonary interstitial density. No suspicious pulmonary ma ss. There is overall not a significant change compared to old exam.
[2021-03-20 03:40] VITALS: BP 142/85; PULSE 81
== END 2021-03-20 03:40 | disposition home or self-care (01) ==
LOC: EC 01:36
DX: R07.89 Other chest pain (principal); K21.9 Gastro-esophageal reflux disease without esophagitis; E78.5 Hyperlipidemia, unspecified; I10 Essential (primary) hypertension; F41.9 Anxiety disorder, unspecified; F90.9 Attention-deficit hyperactivity disorder, unspecified type; F12.90 Cannabis use, unspecified, uncomplicated; Z90.49 Acquired absence of other specified parts of digestive tract
CPT/HCPCS: 99285; 96360; 36415; 93005; 85379; 83880; 80053; 83690; 83735; 84484; 85025; 85610; 85730; 71275; Q9967

== ENCOUNTER 2021-03-21 11:20 | Emergency (ER) | payer OTHER ==
[2021-03-21 11:49] VITALS: RESP 18; TEMP 98.7
--- NOTE | 2021-03-21 13:25 | XR ---
EXAMINATION TYPE: XR hand complete LT DATE OF EXAM: 03/21/2021 COMPARISON: 10/23/2020 HISTORY: 51-year-old male patient from crushing injury today TECHNIQUE: 3 views FINDINGS: Nearly healed transverse fracture mid second metacarpal shaft though with 2 mm of ulnar displacement. Nearly healed oblique fracture first distal phalanx. Alignment is unchanged. There is some soft tiss ue air within the first webspace. A ring is present on the fourth digit. No acute fracture, subluxati on, or dislocation is seen. IMPRESSION: 1. Some air in the first webspace relating to soft tissue injury. No underlying acute osseous abnorma lity seen. 2. Healed to nearly healed transverse fracture second mid metacarpal shaft though with interval 2 mm of ulnar displacement. 3. Healed to nearly healed oblique fracture first distal phalanx.
[2021-03-21] MEDS ORDERED: BACITRACIN OINT 1 EACH PACKET TOPICAL ONE (13:27)
[2021-03-21] MEDS ORDERED: LIDOCAINE 1% INJ 10MG/ML (20 ML MDV) SQ ONE (13:27)
[2021-03-21] MEDS ORDERED: IBUPROFEN 600 MG TAB PO STA (13:27)
--- NOTE | 2021-03-21 13:37 | ED ---
General Adult HPI - General Chief complaint: Wound/Laceration Stated complaint: Crushed Thumb/Lac [facility] Time Seen by Provider: 03/21/21 13:13 Source: patient, RN notes reviewed Mode of arrival: ambulatory Limitations: no limitations - History of Present Illness Initial comments: 51-year-old male presents to the emergency department for evaluation of injury to the left hand sustained approximately an hour prior to arrival. Patient states he was moving a large roll of copper pipe around and his thumb got caught in between layers of the roll when he was distracted. Patient complains of mild discomfort and no decreased range of motion. States he is most concerned about about the thumb laceration. Patient denies any other injuries. States last tet anus shot was summer 2020. - Related Data Home Medications Medication Instructions Recorded Confirmed Ibuprofen [Motrin] 800 mg PO TID PRN 07/06/17 03/21/21 ALPRAZolam [Xanax] 0.5 mg PO BID PRN 01/28/21 03/21/21 Dextroamphetamine/Amphetamine 50 mg PO DAILY 01/28/21 03/21/21 [Adderall Xr] Omeprazole 40 mg PO DAILY 01/28/21 03/21/21 amLODIPine [Norvasc] 10 mg PO DAILY 01/28/21 03/21/21 Previous Rx's Medication Instructions Recorded Cephalexin [Keflex] 500 mg PO Q6HR #20 cap 03/21/21 Allergies Allergy/AdvReac Type Severity Reaction Status Date / Time No Known Allergies Allergy Verified 03/21/21 13:53 Review of Systems ROS Statement: Those systems with pertinent positive or pertinent negative responses have been documented in the HPI. ROS Other: All systems not noted in ROS Statement are negative. Past Medical History Past Medical History: GERD/Reflux, Hyperlipidemia, Hypertension Additional Past Medical History / Comment(s): Hx crush injury to knee. History of Any Multi-Drug Resistant Organisms: None Reported Past Surgical History: Cholecystectomy Additional Past Surgical History / Comment(s): Right eye surgery, lens implanted. Past Anesthesia/Blood Transfusion Reactions: No Reported Reaction Past Psychological History: ADD/ADHD, Anxiety Smoking Status: Never smoker Past Alcohol Use History: Rare Past Drug Use History: Marijuana - Past Family History Mother Family Medical History: Cancer General Exam Limitations: no limitations (Well-developed, well-nourished male in no acute distress. Initial temperature 98.7, pulse 104, recheck 88, respirations 18, blood pressure 129/83, pulse 98% on room air.) General appearance: alert, in no apparent distress Respiratory exam: Present: normal lung sounds bilaterally. Absent: respiratory distress, wheezes, rales, rhonchi, stridor Cardiovascular Exam: Present: regular rate, normal rhythm, normal heart sounds. Absent: systolic murmur, diastolic murmur, rubs, gallop, clicks Left Forearm Wrist exam: Present: normal inspection, full ROM. Absent: tenderness, swelling Hand Wrist exam: Present: full ROM, tenderness (Mild tenderness upon palpation of the thenar eminence), swelling (Localized area of swelling on the dorsal surface of the left hand located over the second metacarpal), laceration (3 cm laceration noted to the palmar surface of the first digit extending from the proximal phalanx toward the palm. Range of motion intact. No loss of sensation.) Neuro motor exam: Present: thumb IP flexion intact, thumb adduction intact, fingers 2-5 abduction intact Vascular: Present: normal capillary refill, radial pulse. Absent: vascular compromise Neurological exam: Present: alert, oriented X3, CN II-XII intact Psychiatric exam: Present: normal affect, normal mood Skin exam: Present: warm, dry, normal color. Absent: rash Course Vital Signs 03/21/21 03/21/21 11:45 16:15 Temperature 98.7 F Pulse Rate 104 H 78 Respiratory 18 18 Rate Blood Pressure 129/83 134/65 O2 Sat by Pulse 98 99 Oximetry Procedures - Laceration Laceration #1 Consent Obtained: verbal consent Indication: laceration Site: hand (First digit, proximal phalanx) Size (cm): 3 Description: linear (Linear laceration with a small flap Proximal aspect of the wound) Depth: simple, single layer Anesthetic Used: lidocaine 1% Anesthesia Technique: local infiltration Pre-repair: wound explored, irrigated extensively Type of Sutures: nylon Size of Sutures: 5-0 Number of Sutures: 5 Technique: simple, interrupted Patient Tolerated Procedure: well, no complications Additional Comments: Bacitracin dressing applied. Wound care reviewed at length. Medical Decision Making - Medical Decision Making 51-year-old male presents to the emergency department for evaluation of laceration and injury to the left thumb. Upon exam, he is well-appearing and in no acute distress. 3 cm laceration noted to the palmar surface of the first digit extending from the proximal phalanx toward the palm. Range of motion intact. No loss of sensation. Last tetanus summer 2020. X-ray was obtained showing some air in the first webspace relating to soft tissue trauma, though with no acute underlying osseous abnormality seen. Old injuries were identified and patient reports that he has been evaluated by orthopedist regarding the healing process. Wound was thoroughly irrigated, anesthetized, then was approximated with 5 sutures. Patient tolerated procedure well. Bacitracin dressing was applied. Wound care was reviewed with patient, he verbalizes understanding. Patient was prescribed an antibiotic. Patient's case was discussed with my attending Dr. Burnette. Patient will be discharged home to follow-up with [facility] as required. Instructed to have sutures removed in 7-10 days. - Radiology Data Radiology results: report reviewed, image reviewed X-ray of the left hand was obtained. Report was reviewed in its entirety. Impression per Dr. Lin is #1 some air in the first webspace relating to soft tissue trauma. No acute underlying osseous abnormality seen. #2 healed to nearly healed transverse fracture second mid metacarpal shaft 2 mm of ulnar displacement. #3 healed to nearly healed oblique fracture of first distal pha lanx. Disposition Clinical Impression: Laceration of left thumb Disposition: HOME SELF-CARE Condition: Stable Instructions (If sedation given, give patient instructions): Care For Your Stitches (ED), Laceration (ED) Additional Instructions: The take Tylenol or Motrin as needed for pain or discomfort. Change dressing once daily. Gentle cleansing with mild soap and water. Keep wound clean, dry, and covered while at work. Monitor for signs of infection as discussed. Take full course of antibiotic. Sutures out in 7-10 days. Follow up as directed by [facility] for further evaluation and treatment. Return to the emergency department with any new, worsening, or concerning symptoms. Prescriptions: Cephalexin [Keflex] 500 mg PO Q6HR #20 cap Is patient prescribed a controlled substance at d/c from ED?: No Referrals: Edmond Grove MD [Primary Care Provider] - 1-2 days Time of Disposition: 15:43
[2021-03-21 16:16] VITALS: BP 134/65; PULSE 78
== END 2021-03-21 16:16 | disposition home or self-care (01) ==
LOC: EC 11:20
DX: S61.012A Laceration without foreign body of left thumb without damage to nail, initial encounter (principal); I10 Essential (primary) hypertension; E78.5 Hyperlipidemia, unspecified; K21.9 Gastro-esophageal reflux disease without esophagitis; F90.9 Attention-deficit hyperactivity disorder, unspecified type; F41.9 Anxiety disorder, unspecified; F12.90 Cannabis use, unspecified, uncomplicated; Z90.49 Acquired absence of other specified parts of digestive tract; W23.1XXA Caught, crushed, jammed, or pinched between stationary objects, initial encounter
CPT/HCPCS: 99284; 12002; 73130; J2001

== ENCOUNTER 2023-01-18 18:48 | Observation (INO) | payer OTHER ==
--- NOTE | 2023-01-18 19:32 | ED ---
Chest Pain HPI - General Source: patient, RN notes reviewed Mode of arrival: ambulatory Limitations: no limitations - History of Present Illness MD Complaint: chest pain <Monie Alexis - Last Filed: 01/18/23 19:30> <Ky Matta - Last Filed: 01/18/23 23:37> - General Chief Complaint: Chest Pain Stated Complaint: L shoulder/chest pain Time Seen by Provider: 01/18/23 19:30 - History of Present Illness Initial Comments: This is a 52 year old male who presents to the emergency department for chest pain and left arm weakness. This has been ongoing for the last couple of weeks. This has happened in past, but typically gets better on its own. This time however it seems to be getting worse. Pain seems to be going down the leg, up the neck, and into the jaw as well. Today, his family states that his arm also seemed to turn white and he felt hot/cold. He does have a family hx of cardiac problems. (Monie Alexis) Dictation was produced using [employer] dictation software. please excuse any grammatical, word or spelling errors. Chief Complaint: 52-year-old male with family history of coronary artery disease presents to the ER for chest pain History of Present Illness: She is 52-year-old male presents emergency departmen t for chest pain. Patient has been having intermittent episodes of chest pain. States that it's in his left anterior chest radiates to his left armpit. He also complains of tingling to the left upper extremity. Does report family history of heart attacks in family members who were diagnosed in their 50s. Patient denies associated shortness of breath. No associated diaphoresis. Patient has history of hypertension high cholesterol. He is currently asymptomatic at the bedside The ROS documented in this emergency department record has been reviewed and confirmed by me. Those systems with pertinent positive or negative responses have been documented in the HPI. All other systems are other negative and/or noncontributory. (Ky Matta) - Related Data Home Medications Medication Instructions Recorded Confirmed Ibuprofen [Motrin] 800 mg PO TID PRN 07/06/17 03/21/21 ALPRAZolam [Xanax] 0.5 mg PO BID PRN 01/28/21 03/21/21 Dextroamphetamine/Amphetamine 50 mg PO DAILY 01/28/21 03/21/21 [Adderall Xr] Omeprazole 40 mg PO DAILY 01/28/21 03/21/21 amLODIPine [Norvasc] 10 mg PO DAILY 01/28/21 03/21/21 Previous Rx's Medication Instructions Recorded Cephalexin [Keflex] 500 mg PO Q6HR #20 cap 03/21/21 Allergies Allergy/AdvReac Type Severity Reaction Status Date / Time No Known Allergies Allergy Verified 01/18/23 19:33 Review of Systems ROS Other: All systems not noted in ROS Statement are negative. <Monie Alexis - Last Filed: 01/18/23 19:30> ROS Other: All systems not noted in ROS Statement are negative. <Ky Matta - Last Filed: 01/18/23 23:37> ROS Statement: Those systems with pertinent positive or pertinent negative responses have been documented in the HPI. Past Medical History Past Medical History: GERD/Reflux, Hyperlipidemia, Hypertension Additional Past Medical History / Comment(s): Hx crush injury to knee. History of Any Multi-Drug Resistant Organisms: None Reported Past Surgical History: Cholecystectomy Additional Past Surgical History / Comment(s): Right eye surgery, lens implanted. Past Anesthesia/Blood Transfusion Reactions: No Reported Reaction Past Psychological History: ADD/ADHD, Anxiety Smoking Status: Never smoker Past Alcohol Use History: Rare Past Drug Use History: Marijuana - Past Family History Mother Family Medical History: Cancer <Monie Alexis - Last Filed: 01/18/23 19:30> General Exam <Monie Alexis - Last Filed: 01/18/23 19:30> <Ky Matta - Last Filed: 01/18/23 23:37> - General Exam Comments Initial Comments: Visual Physical Exam Vital signs reviewed General: Well-appearing, nontoxic, no acute distress. Head: Normocephalic, atraumatic Eyes: PERRLA, EOMI ENT: Airway patent Chest: Nonlabored breathing Skin: No visual rash, normal skin tone Neuro: Alert and oriented 3 Musculoskeletal: No gross abnormalities I performed the QuickNote portion of this chart. Signed Monie Alexis PA-C. (Monie Alexis) PHYSICAL EXAM: General Impression: Alert and oriented x3, not in acute distress HEENT: Normocephalic atraumatic, extra-ocular movements intact, pupils equal and reactive to light bilaterally, mucous membranes moist. Cardiovascular: Heart regular rate and rhythm Chest: Able to complete full sentences, no retractions, no tachypnea Abdomen: abdomen soft, non-tender, non-distended, no organomegaly Musculoskeletal: Pulses present and equal in all extremities, no peripheral edema Motor: no focal deficits noted Neurological: CN II-XII grossly intact, no focal motor or sensory deficits noted Skin: Intact with no visualized rashes Psych: Normal affect and mood (Ky Matta) Course Vital Signs 01/18/23 19:29 Temperature 98.3 F Pulse Rate 90 Respiratory 20 Rate Blood Pressure 165/99 O2 Sat by Pulse 98 Oximetry Chest Pain MDM <Ky Matta - Last Filed: 01/18/23 23:37> - MDM Was pt. sent in by a medical professional or institution (, PA, HOTEL HOUSEKEEPER, urgent care, hospital, or intermediate...) When possible be specific @ -No Did you speak to anyone other than the patient for history (EMS, parent, family, police, friend...)? What history was obtained from this source @ -No Did you review nursing and triage notes (agree or disagree)? Why? @ -I reviewed and agree with nursing and triage notes Were old charts reviewed (outside hosp., previous admission, EMS record, old EKG, old radiological studies, urgent care reports/EKG's, intermediate records)? Report findings @ -No old charts were reviewed Differential Diagnosis (chest pain, altered mental status, abdominal pain women, abdominal pain men, vaginal bleeding, musculoskeletal, weakness, fever, dyspnea, syncope, headache, dizziness, GI bleed, back pain, seizure, CVA, palpatations, mental health)? @ -Differential Chest Pain: Stable Angina, Unstable Angina, STEMI, NSTEMI Aortic Dissection, Pneumothorax, Musculoskeletal, Esophageal Spasm GERD, Cholecystitis, Pancreatitis, Zoster, this is not meant to be an all-inclusive list. EKG interpreted by me (3pts min.). @ -My EKG interpretation: Ventricular rate 80, sinus rhythm,. Interval 158, QRS 80, QTC 394. No NH prolongation, no QTC prolongation. T-wave inversions in lead 3, V3 and V4. Overall, this EKG is nonspecific X-rays interpreted by me (1pt min.). @ -Chest x-ray is unremarkable CT interpreted by me (1pt min.). @ -None done U/S interpreted by me (1pt. min.). @ -None done What testing was considered but not performed or refused? (CT, X-rays, U/S, labs)? Why? @ -None What meds were considered but not given or refused? Why? @ -None Did you discuss the management of the patient with other professionals (professionals i.e. , PA, HOTEL HOUSEKEEPER, lab, RT, psych nurse, clinical social work aide, event organizer, teacher, program officer, case assistant)? Give summary @ -Case discussed with Dr. Grove for admission Was smoking cessation discussed for >3mins.? @ -No Was critical care preformed (if so, how long)? @ -No Were there social determinants of health that impacted care today? How? (Homelessness, low income, unemployed, alcoholism, drug addiction, transportation, low edu. Level, literacy, decrease access to med. care, assisted, rehab)? @ -No Was there de-escalation of care discussed even if they declined (Discuss DNR or withdrawal of care, Hospice)? DNR status @ -No What co-morbidities impacted this encounter? (DM, HTN, Smoking, COPD, CAD, Cancer, CVA, ARF, Chemo, Hep., AIDS, mental health diagnosis, sleep apnea, morbid obesity)? @ -None Was patient admitted / discharged? Hospital course, mention meds given and route, prescriptions, significant lab abnormalities, going to OR and other pertinent info. @ -52-year-old male with family history of acute coronary syndrome presents to the ER for chest pain. His symptoms presentation is atypical with typical features. Vital signs are stable. EKG shows no signs of infarction. There are some nonspecific features. Labs are unremarkable. Troponin is negative. Disposition options are discussed patient is agreeable with observation admission with cardiology consult. Undiagnosed new problem with uncertain prognosis? @ -No Drug Therapy requiring intensive monitoring for toxicity (Heparin, Nitro, Insulin, Cardizem)? @ -No Were any procedures done? @ -No Diagnosis/symptom? Acute, or Chronic, or Acute on Chronic? Uncomplicated (without systemic symptoms) or Complicated (systemic symptoms)? @ -1. Chest pain Side effects of treatment? @ -No Exacerbation, Progression, or Severe Exacerbation? @ -No Poses a threat to life or bodily function? How? (Chest pain, USA, CT, pneumonia, PE, COPD, DKA, ARF, appy, cholecystitis, CVA, Diverticulitis, Homicidal, Suicidal, threat to staff... and all critical care pts) @ -yes (Ky Matta) Disposition <Monie Alexis - Last Filed: 01/18/23 19:30> Decision Time: 23:37 <Ky Matta - Last Filed: 01/18/23 23:37> Clinical Impression: Chest pain Disposition: ADMITTED IP TO THIS HOSP Condition: Fair Referrals: Edmond Grove MD [Primary Care Provider] - 1-2 days
[2023-01-18 19:33] VITALS: TEMP 98.3
[2023-01-18 20:16] LABS: Basophils # (A) 0.1 k/uL (0-0.2); Basophils % (A) 1 %; Eosinophils # (A) 0.1 k/uL (0-0.7); Eosinophils % (A) 2 %; HCT 44.4 % (39.0-53.0); HGB 14.9 gm/dL (13.0-17.5); Lymphocytes # (A) 2.8 k/uL (1.0-4.8); Lymphocytes % (A) 51 %; MCH 30.3 pg (25.0-35.0); MCHC 33.5 g/dL (31.0-37.0); MCV 90.4 fL (80.0-100.0); Mean Platelet Volume 7.1; Monocytes # (A) 0.3 k/uL (0-1.0); Monocytes % (A) 6 %; Neutrophils # (A) 2.1 k/uL (1.3-7.7); Neutrophils % (A) 39 %; Platelet Count 300 k/uL (150-450); RBC 4.92 m/uL (4.30-5.90); RDW 12.7 % (11.5-15.5); WBC 5.5 k/uL (3.8-10.6)
--- NOTE | 2023-01-18 20:18 | XR ---
EXAMINATION TYPE: XR chest 2V DATE OF EXAM: 01/18/2023 COMPARISON: 09/25/2019 HISTORY: 52-year-old male with chest pain TECHNIQUE: PA and lateral views FINDINGS: Heart upper limits of normal in size. Aorta and pulmonary vasculature within normal limits. No consol idation or pleural effusion. IMPRESSION: Borderline heart size. No acute process seen.
[2023-01-18 20:55] LABS: ALT 20 U/L (4-49); AST 22 U/L (17-59); African American GFR (CKD) >90 (>60 ml/min/1.73 sqM); Albumin 4.6 g/dL (3.5-5.0); Alkaline Phosphatase 74 U/L (38-126); Anion Gap 9 mmol/L; Blood Urea Nitrogen 15 mg/dL (9-20); Calcium 9.2 mg/dL (8.4-10.2); Carbon Dioxide 24 mmol/L (22-30); Chloride 108 mmol/L (98-107); Glucose 118 mg/dL (74-99); Non-African American GFR(CKD) >90 (>60 ml/min/1.73 sqM); Potassium 4.1 mmol/L (3.5-5.1); Sodium 141 mmol/L (137-145); Total Bilirubin 0.4 mg/dL (0.2-1.3); Total Protein 7.8 g/dL (6.3-8.2)
[2023-01-18 21:05] LABS: Partial Thromboplastin Time 24.1 sec (22.0-30.0); Prothrombin Time 10.7 sec (9.0-12.0)
[2023-01-18] MEDS ORDERED: ASPIRIN 81 MG PO STA (23:32)
[2023-01-18] MEDS ORDERED: NITROGLYCERIN SL TABS 0.4 MG TAB SUBLINGUAL PRN (23:37)
[2023-01-19 06:33] VITALS: RESP 16
[2023-01-19] MEDS ORDERED: ASPIRIN 325 MG TAB PO SCH (09:00)
[2023-01-19] MEDS ORDERED: ALPRAZolam 0.25 MG TAB PO PRN (09:05)
[2023-01-19] MEDS ORDERED: ATORVASTATIN 80 MG TAB PO STA (09:05)
[2023-01-19] MEDS ORDERED: NITROGLYCERIN SL TABS 0.4 MG TAB SUBLINGUAL PRN (09:05)
[2023-01-19] MEDS ORDERED: ALPRAZolam 0.5 MG TAB PO PRN (09:05)
[2023-01-19] MEDS ORDERED: ASPIRIN 325 MG TAB PO STA (09:05)
--- NOTE | 2023-01-19 09:10 | P.HPIM ---
History of Present Illness H&P Date: 01/19/23 Chief Complaint: chest pain This is a 52-year-old male who presented to the emergency department with complaints of chest pain for the last 2 weeks. He also reports left arm w eakness and pain that radiates to his left armpit. Patient denies any nausea but admits some diaphoresis. Patient reports resting did not make pain any better. He does have a strong cardiac family history. Medical history includes hypertension, GERD and hyperlipidemia. Review of Systems Constitutional: Denies chills, Denies fever Cardiovascular: Reports chest pain, Denies dyspnea on exertion Respiratory: Reports dyspnea, Denies cough Gastrointestinal: Denies abdominal pain, Denies nausea Musculoskeletal: Reports arm numbness/tingling, Denies leg numbness/tingling Neurological: Denies headaches, Denies visual changes Past Medical History Past Medical History: GERD/Reflux, Hyperlipidemia, Hypertension Additional Past Medical History / Comment(s): Hx crush injury to knee. History of Any Multi-Drug Resistant Organisms: None Reported Past Surgical History: Cholecystectomy Additional Past Surgical History / Comment(s): Right eye surgery, lens implanted. Past Anesthesia/Blood Transfusion Reactions: No Reported Reaction Past Psychological History: ADD/ADHD, Anxiety Smoking Status: Never smoker Past Alcohol Use History: Rare Past Drug Use History: Marijuana - Past Family History Mother Family Medical History: Cancer Medications and Allergies Home Medications Medication Instructions Recorded Confirmed Type Omeprazole 40 mg PO HS 01/28/21 01/19/23 History amLODIPine [Norvasc] 10 mg PO HS 01/28/21 01/19/23 History Allergies Allergy/AdvReac Type Severity Reaction Status Date / Time No Known Allergies Allergy Verified 01/19/23 07:40 Physical Exam Vitals: Vital Signs Temp Pulse Pulse Resp BP BP Pulse Ox 01/19/23 07:30 77 16 139/93 98 01/19/23 03:00 67 16 134/84 98 01/19/23 02:00 71 18 136/80 96 01/19/23 01:00 67 16 134/83 98 01/19/23 00:30 73 19 152/97 01/19/23 00:20 69 18 152/97 01/19/23 00:10 70 17 152/97 01/19/23 00:00 72 17 152/97 98 01/18/23 19:29 98.3 F 90 20 165/99 98 Intake and Output 01/18/23 01/19/23 01/19/23 22:59 06:59 14:59 Other: Weight 83.915 kg - Constitutional General appearance: cooperative, no acute distress - EENT Eyes: PERRLA - Neck Neck: no lymphadenopathy, normal ROM, no rigidity - Respiratory Respiratory: bilateral: CTA - Cardiovascular Rhythm: regular Heart sounds: normal: S1, S2 - Gastrointestinal General gastrointestinal: soft, no tenderness - Integumentary Integumentary: normal, normal turgor - Psychiatric Psychiatric: A&O x's 3, appropriate affect, intact judgment & insight Results CBC & Chem 7: 01/18/23 19:56 01/18/23 19:56 Labs: Abnormal Lab Results - Last 24 Hours (Table) 01/18/23 Range/Units 19:56 Chloride 108 H (98-107) mmol/L Glucose 118 H (74-99) mg/dL Assessment and Plan (1) Chest pain Current Visit: Yes Status: Acute Code(s): R07.9 - CHEST PAIN, UNSPECIFIED SNOMED Code(s): 82879648 (2) Hypertension Current Visit: Yes Status: Acute Code(s): I10 - ESSENTIAL (PRIMARY) HYPERTENSION SNOMED Code(s): 34898677 (3) Hyperlipidemia Current Visit: Yes Status: Acute Code(s): E78.5 - HYPERLIPIDEMIA, UNSPECIFIED SNOMED Code(s): 40441545 (4) GERD (gastroesophageal reflux disease) Current Visit: Yes Status: Acute Code(s): K21.9 - GASTRO-ESOPHAGEAL REFLUX DISEASE WITHOUT ESOPHAGITIS SNOMED Code(s): 758273839 Plan: Home medications reconciled. Cardiology has been consulted. Patient seen and evaluated by nurse practitioner, physician in agreement with plan
[2023-01-19] MEDS ORDERED: SODIUM CHLORIDE 0.9% 1,000 ML in EMPTY BAG 1 BAG IV SCH (09:15)
[2023-01-19 09:19] LABS: Chol/HDL Ratio 4.84 Ratio; VLDL Calculation 18.22 mg/dL (5.00-40.00)
[2023-01-19] MEDS ORDERED: HEPARIN SODIUM 1,000 UN/ML (10ML VL) ONE (11:47)
[2023-01-19] MEDS ORDERED: fentaNYL (PF) 50 MCG/ML 2 ML AMP ONE (11:47)
[2023-01-19] MEDS ORDERED: VERAPAMIL 2.5 MG/ML 2 ML AMP ONE (11:47)
[2023-01-19] MEDS ORDERED: IV FLUID CONTINUATION 1,000 ML IV ONE (11:50)
--- NOTE | 2023-01-19 12:06 | P.CRDCN ---
History of Present Illness History of present illness: HISTORY OF PRESENT ILLNESS: This is a 52-year-old male with a past medical history significant for hypertension, ADD, and anxiety. Patient follows in the office with Dr. Julian but has not been seen in the office on January 2020. We have been asked to see the patient in consultation for chest pain. Patient examined at the bedside. Patient states he has been having chest pain over the past few weeks that is getting worse. He states he usually wakes up in the morning and feels okay and then as the day goes on he begins to have chest pain. He states the pain is in the middle of his chest and sometimes radiates into his left arm. He reports at times he feels like his left arm is weak. He denies any shortness of breath. He states the pain is not exertionally related and can occur randomly. He also states the pain is not worse with certain positions. He states that the length of time of the chest pain varies over the past few weeks and sometimes it only last a few seconds and sometimes it last for much longer. He states yesterday he started up and felt like something popped in his chest and he became really dizzy so he called his daughter to come to the emergency room. The patient denies any chest pain or pressure at the time of examination. He denies shortness of breath. He does report a significant family history of coronary artery disease. He is a nonsmoker. * EKG reveals sinus mechanism with nonspecific ST-T wave changes. T-wave inversions in lead III * Chest xray borderline heart size. Negative for acute process * Laboratory data: WBC 5.5. Hemoglobin 14.9. Platelet count 300. Sodium 141. Potassium 4.1. BUN 15. Creatinine 0.86. On a negative 3 * Current home cardiac medications include amlodipine 10 mg at night * Most recent echocardiogram obtained in January 2020 revealed normal EF, mild TR, mild MR * Patient underwent stress testing in January 2020 which was negative for ischemia REVIEW OF SYSTEMS: At the time of my exam: CONSTITUTIONAL: Denies fever or chills. HEENT: Denies blurred vision, vision changes, or eye pain. Denies hemoptysis CARDIOVASCULAR: Denies chest pain. Denies orthopnea. Denies PND. Denies palpitations RESPIRATORY: Denies shortness of breath. GASTROINTESTINAL: Denies abdominal pain. Denies nausea or vomiting. HEMATOLOGIC: Denies bleeding disorders. GENITOURINARY: Denies any blood in urine. SKIN: Denies pruitis. Denies rash. PHYSICAL EXAM: VITAL SIGNS: Reviewed. GENERAL: Well-developed in no acute distress. HEENT: Head is normocephalic. Pupils are equal, round. Sclerae anicteric. Mucous membranes of the mouth are moist. Neck supple. No JVD or thyromegaly LUNGS: Respirations even and unlabored. Lungs essentially clear to auscultation bilaterally. HEART: Regular rate and rhythm. S1 and S2 heard. ABDOMEN: Soft. Nondistended. Nontender. EXTREMITIES: Normal range of motion. No clubbing or cyanosis. Peripheral pul ses intact. No lower extremity edema NEUROLOGIC: Awake and alert. Oriented x 3. ASSESSMENT: Chest pain with typical and atypical features, troponin negative 3 Hypertension History of ADD History of anxiety Family history of coronary artery disease PLAN: An acute coronary has been ruled out Obtain 2-D echo to assess cardiac structure and function Patient to undergo cardiac catheterization today with Dr. Julian Further recommendations pending patient's course Nurse practitioner note has been reviewed by physician. Signing provider agrees with the documented findings, assessment, and plan of care. Past Medical History Past Medical History: GERD/Reflux, Hyperlipidemia, Hypertension Additional Past Medical History / Comment(s): Hx crush injury to knee. History of Any Multi-Drug Resistant Organisms: None Reported Past Surgical History: Cholecystectomy Additional Past Surgical History / Comment(s): Right eye surgery, lens implanted. Past Anesthesia/Blood Transfusion Reactions: No Reported Reaction Past Psychological History: ADD/ADHD, Anxiety Smoking Status: Never smoker Past Alcohol Use History: Rare Past Drug Use History: Marijuana - Past Family History Mother Family Medical History: Cancer Medications and Allergies Home Medications Medication Instructions Recorded Confirmed Type Omeprazole 40 mg PO HS 01/28/21 01/19/23 History amLODIPine [Norvasc] 10 mg PO HS 01/28/21 01/19/23 History Allergies Allergy/AdvReac Type Severity Reaction Status Date / Time No Known Allergies Allergy Verified 01/19/23 07:40 Physical Exam Vitals: Vital Signs Temp Pulse Pulse Resp BP BP Pulse Ox 01/19/23 07:30 77 16 139/93 98 01/19/23 03:00 67 16 134/84 98 01/19/23 02:00 71 18 136/80 96 01/19/23 01:00 67 16 134/83 98 01/19/23 00:30 73 19 152/97 01/19/23 00:20 69 18 152/97 01/19/23 00:10 70 17 152/97 01/19/23 00:00 72 17 152/97 98 01/18/23 19:29 98.3 F 90 20 165/99 98 Intake and Output 01/18/23 01/19/23 01/19/23 22:59 06:59 14:59 Other: Weight 83.915 kg Results 01/18/23 19:56 01/18/23 19:56 Cardiac Enzymes 01/18/23 01/18/23 01/19/23 Range/Units 19:56 19:56 00:05 AST 22 (17-59) U/L Troponin I <0.012 <0.012 (0.000-0.034) ng/mL 01/19/23 Range/Units 03:25 AST (17-59) U/L Troponin I <0.012 (0.000-0.034) ng/mL Coagulation 01/18/23 Range/Units 19:56 PT 10.7 (9.0-12.0) sec APTT 24.1 (22.0-30.0) sec CBC 01/18/23 Range/Units 19:56 WBC 5.5 (3.8-10.6) k/uL RBC 4.92 (4.30-5.90) m/uL Hgb 14.9 (13.0-17.5) gm/dL Hct 44.4 (39.0-53.0) % Plt Count 300 (150-450) k/uL Comprehensive Metabolic Panel 01/18/23 Range/Units 19:56 Sodium 141 (137-145) mmol/L Potassium 4.1 (3.5-5.1) mmol/L Chloride 108 H (98-107) mmol/L Carbon Dioxide 24 (22-30) mmol/L BUN 15 (9-20) mg/dL Creatinine 0.86 (0.66-1.25) mg/dL Glucose 118 H (74-99) mg/dL Calcium 9.2 (8.4-10.2) mg/dL AST 22 (17-59) U/L ALT 20 (4-49) U/L Alkaline Phosphatase 74 (38-126) U/L Total Protein 7.8 (6.3-8.2) g/dL Albumin 4.6 (3.5-5.0) g/dL Current Medications Generic Name Dose Route Start Last Admin Trade Name Freq PRN Reason Stop Dose Admin Amlodipine Besylate 10 mg 01/19/23 21:00 Amlodipine 10 Mg Tab PO HS MARY Nitroglycerin 0.4 mg 01/18/23 23:37 Nitroglycerin Sl Tabs 0.4 Mg Tab SUBLINGUAL Q5M PRN Chest Pain Pantoprazole Sodium 40 mg 01/19/23 21:00 Pantoprazole 40 Mg Tablet PO HS MARY Intake and Output 01/18/23 01/19/23 01/19/23 22:59 06:59 14:59 Other: Weight 83.915 kg 01/18/23 19:56 01/18/23 19:56
[2023-01-19] MEDS ORDERED: LIDOCAINE 1% INJ 10MG/ML (5 ML VIAL-PF) SQ ONE (12:18)
[2023-01-19] MEDS ORDERED: fentaNYL (PF) 50 MCG/ML 2 ML AMP IVP ONE (12:18)
[2023-01-19] MEDS ORDERED: MIDAZOLAM 2 MG/2 ML VIAL IVP ONE (12:18)
[2023-01-19] MEDS ORDERED: VERAPAMIL SYRINGE (5 MG/10 ML) INTRAARTER ONE (12:20)
[2023-01-19] MEDS ORDERED: HEPARIN SODIUM 1,000 UN/ML (10ML VL) IV ONE (12:22)
[2023-01-19] MEDS ORDERED: IOPAMIDOL-370 100ML BTL INJ ONE (12:27)
--- NOTE | 2023-01-19 12:45 | P.CARDCATH ---
Date of Procedure: 01/19/23 Description of Procedure: Cardiac Catheterization: The patient is a 52-year-old male with a known history of hypertension and a family history of premature CAD who presented with recurrent chest discomfort and radiation to the left arm. Recommendations were made regarding cardiac catheterization, the risks and the complications were discussed with the patient who is in full understanding and agreement. Procedure Description: Patient was brought to cathodic protection technician in fasting semi-sedated state after receiving Fentanyl and Benadryl achieiving moderate conscious sedated state. Using Xylocaine Anesthesia and Seldinger technique, a 6-H[place] Konger sheath was introduced in the right radial artery . Subsequently, selective coronary angiography was performed using a 5-[place]er 3.5 bend Althea catheter. Multiple views of the coronary artery including hemiaxial views were obtained. The left Althea catheter was used to cross the aortic valve and LVEDP was calculated. Following that, catheter and sheath were removed. Hemostasis was obtained with deployment of TR band . There was no immediate complication. Patient was returned to room in stable condition. Of note, the patient received a total of 4500 units of intravenous heparin as well as intra-arterial verapamil. Findings: Left main: This is a large size vessel, trifurcating into LAD, ramus intermedius and left circumflex, left main has no obstructive disease LAD: This is a large-size vessel, reaching to the apex, giving rise to small diagonal branch, the LAD has 10 to 20% plaque proximally, the rest of the vessel has no high-grade stenosis Left circumflex: This is a nondominant vessel, giving rise to one obtuse marginal branch that has no obstructive disease RCA: This is a large dominant vessel, bifurcating into PDA and PLV him at the right coronary artery has mild intimal disease in the midsegment of 20% with no high-grade stenosis. Ramus intermedius is a large-size vessel, reaching to the apical lateral wall. The proximal ramus intermedius has 20% plaque, the rest of the vessel has no high-grade stenosis Left Ventriculogram: Not performed Hemodynamics: There was no gradient across the aortic valve , LVEDP was 14-16 mmHg Conclusion: 1. Mild obstructive disease in the LAD, RCA and ramus intermedius 2. Right dominance 3. Normal LVEDP Recommendations: The patient will continue medical therapy with aggressive coronary risks modifications, there is no evidence of high-grade stenosis to explain his symptoms. The findings and the recommendations were discussed with the patient and the family and they were in full understanding and agreement. Duration of sedation is 12 minutes.
--- NOTE | 2023-01-19 12:49 | CA ---
Transthoracic Echo Report Name: Theo Dixon Age: 52 Gender: M : 1970 Exam Date: 01/19/2023 09:42 Exam Location: [place] [facility] Ht (in): 69 Wt (lb): 185 Ordering Physician: Maryana Velazquez Attending/Referring Phys: [id number], Marcus Merchandising Team Lead Gale Caceres [facility] Procedure CPT: Indications: LV function, chest pain Cardiac Hx: Technical Quality: Technically difficult study Contrast 1: Lumason Total Dose (mL): 5 Contrast 2: Total Dose (mL): MEASUREMENTS (Male / Female) Normal Values 2D ECHO LV Diastolic Diameter PLAX 4.6 cm 4.2 - 5.9 / 3.9 - 5.3 cm LV Systolic Diameter PLAX 3.6 cm IVS Diastolic Thickness 1.1 cm 0.6 - 1.0 / 0.6 - 0.9 cm LVPW Diastolic Thickness 1.0 cm 0.6 - 1.0 / 0.6 - 0.9 cm LV Relative Wall Thickness 0.5 LVOT Diameter 2.0 cm Ascending Aorta Diameter 3.4 cm M-MODE Aortic Root Diameter MM 3.0 cm LA Systolic Diameter MM 4.0 cm LA Ao Ratio MM 1.3 AV Cusp Separation MM 2.0 cm DOPPLER AV Peak Velocity 128.9 cm/s AV Peak Gradient 6.6 mmHg AV Mean Velocity 96.4 cm/s AV Mean Gradient 4.1 mmHg AV Velocity Time Integral 24.0 cm LVOT Peak Velocity 105.7 cm/s LVOT Peak Gradient 4.5 mmHg LVOT Velocity Time Integral 20.5 cm LVOT Stroke Volume 63.7 cm??? LVOT Stroke Volume Index 31.9 ml/m??? LVOT Cardiac Index 2345.0 cm???/min???m??? AV Area Cont Eq vti 2.7 cm??? AV Area Cont Eq pk 2.5 cm??? Mitral E Point Velocity 58.6 cm/s Mitral A Point Velocity 80.0 cm/s Mitral E to A Ratio 0.7 MV Deceleration Time 209.7 ms LV E' Lateral Velocity 10.5 cm/s Mitral E to LV E' Lateral Ratio 5.6 LV E' Septal Velocity 6.7 cm/s Mitral E to LV E' Septal Ratio 8.8 FINDINGS Left Ventricle Mildly increased septal wall thickness. Left ventricular cavity size normal. Normal left ventricular systolic function with no obvious regional wall motion abnormalities. Left ventricular ejection fraction is estimated at 55-60%. Right Ventricle Mild right ventricular dilatation. Right Atrium Mild right atrial dilatation. Left Atrium Normal left atrial size. Mitral Valve Structurally normal mitral valve. Trace mitral regurgitation. Aortic Valve Trileaflet aortic valve. Thickening of the aortic valve cusps. Trace aortic regurgitation. Tricuspid Valve Structurally normal tricuspid valve. Trace tricuspid regurgitation. Pulmonic Valve Pulmonic valve not well visualized. Pericardium No pericardial effusion. Echo free space anterior to the right ventricle likely represents a fat pad. Aorta Normal size aortic root and proximal ascending aorta. CONCLUSIONS 1. Normal left ventricle size and systolic function 2. Trace mitral, tricuspid and aortic regurgitation Previewed by: Dr. Evin Julian MD (Electronically Signed) Final Date: 19 January 2023 12:48
--- NOTE | 2023-01-19 13:37 | P.DS ---
Providers Date of admission: 01/18/23 23:47 Expected date of discharge: 01/19/23 Attending physician: Edmond Grove Consults: 01/18/23 23:37 Consult Physician Urgent Consulting Provider: Bradley Alex Consult Reason/Comments: chest pain Do you want consulting provider notified?: Yes Primary care physician: Edmond Grove Hospital Course: The patient was admitted secondary to left-sided chest pain radiation with left arm numbness. The patient had sweating but no Significant nausea. He had stress test done about a year and 1 1/2-2 years ago which is nominal. After evaluation with cardiology had a cardiac catheterization which was nominal. The patient is discharged in stable condition. Cardiac risk factors and reduction was discussed with the patient and he will follow-up with me in about a week. Patient Condition at Discharge: Fair Plan - Discharge Summary New Discharge Prescriptions: Continue amLODIPine [Norvasc] 10 mg PO HS Omeprazole 40 mg PO HS Discharge Medication List Omeprazole 40 mg PO HS 01/28/21 [History] amLODIPine [Norvasc] 10 mg PO HS 01/28/21 [History] Follow up Appointment(s)/Referral(s): Evin Julian MD [STAFF PHYSICIAN] - 1 Week (APPOINTMENT MADE ON @ 9:15AM ) Edmond Grove MD [Primary Care Provider] - 1-2 days (APPOINTMENT MADE ON @ 2:20PM ) Patient Instructions/Handouts: Moderate Sedation (ED), After Radial Heart Catheterization (GEN) Activity/Diet/Wound Care/Special Instructions: *NO LIFTING, PUHING, OR PULLING ANYTHING OVER 5 POUNDS FOR 5 DAYS *NO DRIVING FOR 3 DAYS *YOU CAN REMOVE YOUR DRESSING TOMORROW AND YOU CAN SHOWER AT THAT TIME - DO NOT SUBMERSE YOUR PUNCTURE SITE IN WATER FOR A FEW DAYS TO PREVENT INFECTION - SO NO TUB BATHS, POOLS, HOT TUBS, DISHES...ETC *ANY SIGNS OF BLEEDING (HARDNESS, SWELLING, OR EXCESSIVE BRUISING) HOLD DIRECT PRESSURE ON YOUR PUNCTURE SITE AND COME TO THE NEAREST EMERGENCY ROOM TO GET YOUR PUNCTURE SITE LOOKED AT - DO NOT DRIVE YOURSELF! EITHER CALL EMS OR HAVE SOMEONE DRIVE YOU! Discharge Disposition: HOME SELF-CARE
[2023-01-19 16:26] VITALS: BP 156/84; PULSE 72
[2023-01-19] MEDS ORDERED: amLODIPine 10 MG TAB PO SCH (21:00)
[2023-01-19] MEDS ORDERED: PANTOPRAZOLE 40 MG TABLET PO SCH (21:00)
[2023-01-20] MEDS ORDERED: HEPARIN SODIUM,PORCINE (1 ML) 2,500 UNIT in SODIUM CHLORIDE 0.9% 250 ML IRRIGATION PRN (07:00)
[2023-01-20] MEDS ORDERED: HEPARIN SODIUM,PORCINE 10,000 UNIT in SODIUM CHLORIDE 0.9% 1,000 ML IRRIGATION PRN (07:00)
== END 2023-01-19 16:42 | disposition home or self-care (01) ==
LOC: EC 18:48 → 6NMEDSUR 23:47
PROVIDERS: ADMIT Family Medicine; ATTEND Family Medicine
DX: I25.10 Atherosclerotic heart disease of native coronary artery without angina pectoris (principal); I10 Essential (primary) hypertension; E78.00 Pure hypercholesterolemia, unspecified; Z79.899 Other long term (current) drug therapy; K21.9 Gastro-esophageal reflux disease without esophagitis; Z82.49 Family history of ischemic heart disease and other diseases of the circulatory system; F90.9 Attention-deficit hyperactivity disorder, unspecified type; F41.9 Anxiety disorder, unspecified; Z90.49 Acquired absence of other specified parts of digestive tract; Z98.890 Other specified postprocedural states; Z80.9 Family history of malignant neoplasm, unspecified
CPT/HCPCS: 99285; 36415; 93005; 93306; 93458; 80061; 80053; 83735; 84484 ×2; 85025; 85610; 85730; 71046; G0378; C1769; C1894; J2250; J2001; J3010; J1644; Q9950; Q9967

== ENCOUNTER → 2023-11-26 | Outpatient (CLI) | payer OTHER ==
--- NOTE | 2023-11-26 14:49 | XR ---
EXAMINATION TYPE: XR hand complete 3 views LT DATE OF EXAM: 11/26/2023 Comparison: 03/21/2021 Clinical History: 53-year-old male S67.193A Crushing injury, S61.303A open wound L saravia Findings: There is nondisplaced comminuted fracture involving the tuft of the third distal phalanx. Additional chip fracture from the radial margin of the distal phalangeal base. Overlying soft tissue injury and dressing. No subluxation or dislocation. Old healed fracture deformity second mid metacarpal shaft. Impression: Crush injury with comminuted fracture of the third distal phalangeal tuft. Additional chip fracture f rom the radial margin of the distal phalangeal base.
== END | disposition home or self-care (01) ==
LOC: RADXRMAIN 13:37
PROVIDERS: ATTEND Emergency Medicine
DX: S67.193A Crushing injury of left middle finger, initial encounter (principal); S61.303A Unspecified open wound of left middle finger with damage to nail, initial encounter; S52.592A Other fractures of lower end of left radius, initial encounter for closed fracture; W23.0XXA Caught, crushed, jammed, or pinched between moving objects, initial encounter